=== PATIENT | female | born 1965 | race Two or more races ===

== ENCOUNTER 2023-09-07 06:54 | Inpatient (IN) | payer MEDICARE, MEDICAID ==
[~2023-09-07] VITALS: Ht 154.9 cm; Wt 54.5 kg
[2023-09-07 07:41] LABS: Basophils # (auto) 0 10 ^3/uL (0-0.2); Basophils % (auto) 0.2 % (0.0-2.0); Eosinophils # (auto) 0.1 10 ^3/uL (0-0.8); Eosinophils % (auto) 1.8 % (0.0-7.0); Hematocrit 40.2 % (36.0-46.0); Hemoglobin 13.8 g/dL (12.2-16.2); Lymphocytes % (auto) 13.2 % (10.0-50.0); Mean Corpuscular Hemoglobin 32.1 pg (28.0-32.0); Mean Corpuscular Hgb Conc. 34.2 g/dL (32.0-36.0); Mean Corpuscular Volume 93.8 fL (80.0-100.0); Monocytes # (auto) 0.9 10 ^3/uL (0-1.3); Monocytes % (auto) 11.4 % (0.0-12.0); Neutrophils # (auto) 5.5 10 ^3/uL (1.6-8.6); Neutrophils % (auto) 73.4 % (37.0-80.0); Red Blood Cells 4.29 10^6/uL (4.0-5.20); Red Cell Distribution Width 13.6 % (11.8-14.3); White Blood Cell 7.5 10^3/uL (4.4-10.8)
[2023-09-07 07:47] LABS: Chloride 102 mmol/L (98-107); Potassium 2.7 mmol/L (3.5-5.1); Sodium 138 mmol/L (136-145)
[2023-09-07 07:48] LABS: Anion Gap 9 (5-15); Calcium 8.9 mg/dL (8.7-10.4); Carbon Dioxide 27 mmol/L (20-30)
[2023-09-07 07:53] LABS: BUN/Creatinine Ratio 7.2 (10.0-20.0); Blood Urea Nitrogen 5 mg/dL (9-23); Glucose 71 mg/dL (74-106)
[2023-09-07 07:55] LABS: Lactic Acid w/Reflex 2.3 mmol/L (0.4-2.0)
[2023-09-07] MEDS: DEXTROSE 10% IV ONE (08:20)
[2023-09-07 08:22] VITALS: PULSE 76; RESP 11; O2SAT 98
[2023-09-07] MEDS: SODIUM CHLORIDE 0.9% 1,000 ML IV ONE ×2 (08:33)
[2023-09-07 09:52] LABS: Urine Bacteria FEW /hpf (None Seen); Urine Blood 1+ /uL (Negative); Urine Clarity Turbid (Clear); Urine Color Colorless (Yellow); Urine Hyaline Cast FEW /lpf (0 - 2); Urine Protein, UAD Negative (Negative); Urine Specific Gravity 1.004 (1.001-1.035); Urine Urobilinogen Normal (Negative); Urine WBC 35 /hpf (0 - 5); Urine WBC Clumps PRESENT /hpf (None Seen); Urine pH 6.5 (5.0-9.0)
[2023-09-07] MEDS: DEXTROSE 10% 250 ML IV SCH (11:30)
[2023-09-07] MEDS: DEXTROSE 10% 1,000 ML IV SCH (12:16)
[2023-09-07] MEDS: ONDANSETRON HCL 4 MG/2 ML VIAL IV ONE (12:59)
[2023-09-07] MEDS: MORPHINE SULFATE INJ 2 MG/ml SYRG IV ONE (12:59)
[2023-09-07] MEDS ORDERED: DEXTROSE (50%) 50ML SYRG IV PRN ×2 (13:15→22:45)
[2023-09-07] MEDS ORDERED: DOCUSATE SOD 100 MG CAP PO PRN (13:15)
[2023-09-07] MEDS ORDERED: NITROGLYCERIN 0.4 MG SL TAB SL PRN (13:15)
[2023-09-07] MEDS ORDERED: MORPHINE SULFATE INJ 2 MG/ml SYRG IV PRN (13:15)
[2023-09-07] MEDS: POTASSIUM CHL 20MEQ/100ML 100 ML IV SCH ×2 (13:40→23:52)
[2023-09-07] MEDS: ENOXAPARIN SOD 40 MG/0.4 ML SYRINGE SC SCH (13:40)
[2023-09-07] MEDS: ACCU-CHEK COMFORT CURVE STRIP VI SCH ×2 (14:00→23:52)
[2023-09-07 14:16] LABS: Magnesium 1.4 mg/dL (1.6-2.6)
[2023-09-07 14:17] LABS: Phosphorus 2.9 mg/dL (2.4-5.1)
[2023-09-07] MEDS: cefTRIAXone 1GM/50ML D5W 50 ML IV ONE (16:58)
[2023-09-07 20:00] VITALS: PULSE 82; RESP 16; O2SAT 98
[2023-09-07 23:45] VITALS: PULSE 78
[2023-09-08] VITALS (9 sets, daily range): BP systolic 109–129; BP diastolic 62–83; PULSE 59–79; RESP 16–19; TEMP 97.5–99; O2SAT 96–99
[2023-09-08] MEDS: InsuLIN REG 1unit/0.01ml Soln (100units/ml) SC SCH ×2 (00:01→22:08)
[2023-09-08] MEDS ORDERED: FLUO10TA18 PO (02:18)
[2023-09-08] MEDS ORDERED: FLUP2.5T24 PO (02:18)
[2023-09-08] MEDS ORDERED: MEMA1TAB5 PO (02:18)
[2023-09-08] MEDS ORDERED: DIVA1TAB37 PO (02:18)
[2023-09-08] MEDS: ONDANSETRON HCL 4 MG/2 ML VIAL IV PRN (02:27)
[2023-09-08] MEDS: MORPHINE SULFATE INJ 2 MG/ml SYRG IV PRN (02:36)
[2023-09-08 07:44] LABS: Basophils # (auto) 0 10 ^3/uL (0-0.2); Basophils % (auto) 0.5 % (0.0-2.0); Eosinophils # (auto) 0.2 10 ^3/uL (0-0.8); Eosinophils % (auto) 4.1 % (0.0-7.0); Hematocrit 38.6 % (36.0-46.0); Hemoglobin 12.8 g/dL (12.2-16.2); Lymphocytes # (auto) 1.6 10 ^3/uL (0.4-5.4); Mean Corpuscular Hemoglobin 31.8 pg (28.0-32.0); Mean Corpuscular Hgb Conc. 33.3 g/dL (32.0-36.0); Mean Corpuscular Volume 95.6 fL (80.0-100.0); Monocytes # (auto) 0.5 10 ^3/uL (0-1.3); Monocytes % (auto) 10.9 % (0.0-12.0); Neutrophils # (auto) 2.5 10 ^3/uL (1.6-8.6); Neutrophils % (auto) 51.5 % (37.0-80.0); Nucleated Red Blood Cells % 0.1 %; Red Blood Cells 4.03 10^6/uL (4.0-5.20); Red Cell Distribution Width 13.3 % (11.8-14.3); White Blood Cell 4.9 10^3/uL (4.4-10.8)
[2023-09-08 08:04] LABS: Alanine Aminotransferase 41 U/L (7-40); Albumin 3.5 g/dL (3.2-4.8); Alkaline Phosphatase 98 U/L (46-116); Anion Gap 2 (5-15); Aspartate Aminotransferase 44 U/L (13-40); Calcium 8.8 mg/dL (8.5-10.1); Carbon Dioxide 27 mmol/L (20-30); Chloride 108 mmol/L (98-107); Glucose 111 mg/dL (74-106); Potassium 4.3 mmol/L (3.5-5.1); Sodium 137 mmol/L (136-145)
[2023-09-08 08:05] LABS: Bilirubin, Total 0.3 mg/dL (0.2-1.0); Total Protein 5.8 g/dL (5.7-8.2)
[2023-09-08 08:14] LABS: Blood Urea Nitrogen < 5 mg/dL (9-23)
[2023-09-08] MEDS: cefTRIAXone 1GM/50ML D5W 50 ML IV SCH (09:49)
[2023-09-08] MEDS: FLUoxetine HCL 10 MG CAP PO SCH (09:49)
[2023-09-08] MEDS: MEMANTINE HCL 5 MG TAB PO SCH (09:49)
[2023-09-08] MEDS: PANTOPRAZOLE 40 MG TAB PO ONE (12:41)
[2023-09-08] MEDS ORDERED: ZOLP5TAB5 PO (14:40)
[2023-09-08] MEDS ORDERED: ROSU20TA14 PO (14:40)
[2023-09-08] MEDS ORDERED: GLIP10TA9 PO (14:40)
[2023-09-08] MEDS: IBUPROFEN 400 MG TAB PO PRN (14:55)
[2023-09-08] MEDS ORDERED: DEXTROSE (50%) 50ML SYRG IV PRN (17:45)
[2023-09-08] MEDS: MAGNESIUM OXIDE 400 MG TAB PO ONE (18:54)
[2023-09-08] MEDS: ACCU-CHEK COMFORT CURVE STRIP VI SCH (22:14)
[2023-09-09 02:59] LABS: COVID19 ANTIGEN SOFIA FIA NEGATIVE (NEGATIVE); Rapid Influenza A Negative (Negative); Rapid Influenza B Negative (Negative)
[2023-09-09 05:00] VITALS: BP 119/61; PULSE 77; RESP 16; TEMP 98.6; O2SAT 96
[2023-09-09] MEDS: PANTOPRAZOLE 40 MG TAB PO SCH (05:59)
[2023-09-09 06:22] LABS: Basophils # (auto) 0 10 ^3/uL (0-0.2); Basophils % (auto) 0.7 % (0.0-2.0); Eosinophils # (auto) 0.2 10 ^3/uL (0-0.8); Eosinophils % (auto) 4.3 % (0.0-7.0); Hemoglobin 12.3 g/dL (12.2-16.2); Lymphocytes # (auto) 1.6 10 ^3/uL (0.4-5.4); Lymphocytes % (auto) 30.3 % (10.0-50.0); Mean Corpuscular Hemoglobin 31.8 pg (28.0-32.0); Mean Corpuscular Hgb Conc. 34.2 g/dL (32.0-36.0); Mean Corpuscular Volume 93.1 fL (80.0-100.0); Monocytes # (auto) 0.6 10 ^3/uL (0-1.3); Monocytes % (auto) 10.5 % (0.0-12.0); Neutrophils # (auto) 2.9 10 ^3/uL (1.6-8.6); Neutrophils % (auto) 54.2 % (37.0-80.0); Nucleated Red Blood Cells % 0.1 %; Red Blood Cells 3.87 10^6/uL (4.0-5.20); Red Cell Distribution Width 13.1 % (11.8-14.3); White Blood Cell 5.3 10^3/uL (4.4-10.8)
[2023-09-09 06:43] LABS: Alanine Aminotransferase 41 U/L (7-40); Alkaline Phosphatase 96 U/L (46-116); Anion Gap 5 (5-15); BUN/Creatinine Ratio 15.6 (10.0-20.0); Blood Urea Nitrogen 7 mg/dL (9-23); Calcium 9.1 mg/dL (8.5-10.1); Carbon Dioxide 29 mmol/L (20-30); Chloride 103 mmol/L (98-107); Glucose 79 mg/dL (74-106); Magnesium 1.8 mg/dL (1.6-2.6); Potassium 3.9 mmol/L (3.5-5.1); Sodium 137 mmol/L (136-145)
[2023-09-09 06:44] LABS: Albumin 3.6 g/dL (3.2-4.8); Aspartate Aminotransferase 34 U/L (13-40)
[2023-09-09 06:45] LABS: Bilirubin, Total 0.3 mg/dL (0.2-1.0); Total Protein 5.7 g/dL (5.7-8.2)
[2023-09-09 08:00] VITALS: RESP 16; O2SAT 98
[2023-09-09 09:00] VITALS: BP 113/68; PULSE 76; RESP 16; TEMP 98.7; O2SAT 97
[2023-09-09] MEDS: MAGNESIUM OXIDE 400 MG TAB PO SCH (10:06)
[2023-09-09] MEDS: NITROFURANTOIN 100 mg CAP PO SCH (10:07)
[2023-09-09] MEDS ORDERED: DEXTROSE (50%) 50ML SYRG IV PRN (11:30)
[2023-09-09] MEDS ORDERED: METF-489 PO (12:23)
[2023-09-09] MEDS: ACCU-CHEK COMFORT CURVE STRIP VI SCH (12:45)
[2023-09-09] MEDS: InsuLIN REG 1unit/0.01ml Soln (100units/ml) SC SCH (12:48)
[2023-09-09 13:20] VITALS: BP 133/83; PULSE 82; RESP 20; TEMP 98.3; O2SAT 90
[2023-09-09] MEDS ORDERED: InsuLIN REG 1unit/0.01ml Soln (100units/ml) SC SCH (22:00)
== END 2023-09-09 17:10 | disposition home or self-care (01) | DRG 638 ==
LOC: ER 06:54 → EDBD 06:54 → TELE 13:17 → TELE-CENTR 22:50 → CENTRAL 09-08 17:51
PROVIDERS: ADMIT Internal Medicine; ATTEND Internal Medicine
DX: E11.649 Type 2 diabetes mellitus with hypoglycemia without coma (principal); E87.20 Acidosis, unspecified; N30.00 Acute cystitis without hematuria; F03.93 Unspecified dementia, unspecified severity, with mood disturbance; K52.9 Noninfective gastroenteritis and colitis, unspecified; E87.6 Hypokalemia; E86.0 Dehydration; E83.42 Hypomagnesemia; F31.9 Bipolar disorder, unspecified; F20.9 Schizophrenia, unspecified; Z79.4 Long term (current) use of insulin; Z79.899 Other long term (current) drug therapy
CPT/HCPCS: 36415; 70450; 70486; 73030; 80048; 80053; 81001; 82962; 83036; 83605; 83735; 84100; 85025; 87040; 87081; 87086; 87426; 87804; 96361; 96365; 96372; 96375; G0378; J1815; J2405; J3480